=== PATIENT | male | born 1950 | race Hispanic/Latino ===

== ENCOUNTER 2021-06-16 18:01 | Observation (INO) | payer MEDICARE ==
--- OUTSIDE RECORDS SUMMARY | 2021-06-16 18:03 | XMS REPORT | Continuity of Care Document ---
:1950 Author Organization [facility] t Address [facility] [place] [address] Care Team Providers Name Role Phone JAYNE CACERES Attending Clinician Unavailable Payers Payer Name Policy Type Policy Number Effective Date Expiration Date S jose [facility] [id number] 2021 (MEDICARE 00:00:00 REPLACEMENT HMO) Problems This patient has no known problems. Allergies, Adverse Reactions, Alerts Allergy Allergy Status Severity Reaction(s) Onset Inactive Treating Comm ents Source Name Type Date Date Clinician No Known DA Active [facility] Medications This patient has no known medications. Procedures This patient has no known procedures. Encounters Start End Encounter Admission Attending Care Care Encounter Source Date/Time Date/Time Type Type Clinicians Facility Department ID 2021-06-03 2021-06-03 Outpatient [facility] [id number] 06:35:00 06:35:00 -[id number] [facility] 2021-03-04 2021-03-04 Outpatient YOVANA COXG [id number] [facility] 08:01:00 08:01:00 1109 [facility] Results Test Description Test Time Test Comments Results Result Sourc e Comments CHEST 2 VIEWS 2021-06-02 10:34:00 [facility] 1950 Sex: M [facility] [address] [address] Patient Name: LIAN WADE MR #: [id number] : 1950 Age/Sex: 70/M Req #: [id number] Adm Physician: Ordered by: JAYNE CACERES MD Report #: [id number] Location: OR Room/Bed: Procedure: [id number] DX/CHEST 2 VIEWS Exam Date: 06/02/21 Exam Time: 1014 REPORT STATUS: Signed Exam: CHEST 2 VIEWS Date: 06/02/2021 10:34 AM Indication: Preoperative Comparison: CXR 02/14/2019 FINDINGS: Lines/Tubes:None Lungs:The lungs are well inflated. No focal consolidation or pulmonary edema. Pleura:No pleural effusion. No pneumothorax. Heart/Mediastinum:The cardiomediastinal silhouette is normal in size and contour. Bones/Soft Tissues: No acute osseous injury. Abdomen: No free air below the diaphragm. IMPRESSION: No focal pneumonia or pulmonary edema. Signed by: Fatemeh Briggs on 06/02/2021 10:34 AM Dictated By: FATEMEH BRIGGS MD [id number] Transcribed By: SANTI on 06/02/21 1034 COPY TO: JAYNE CACERES MD CHEST 2 VIEWS 2019-02-14 13:57:[address] [address] Patient Name: LIAN WADE MR #: [id number] : 1950 Age/Sex: 68/M Req #: [id number] [facility] Physician: Ordered by: JAYNE CACERES MD Report #: [id number] Location: OR Room/Bed: Procedure: [id number] DX/CHEST 2 VIEWS Exam Date: Exam Time: REPORT STATUS: Signed EXAMINATION: CHEST 2 VIEWS INDICATION: Pre-operative COMPARISON: None FINDINGS: LINES/TUBES:None LUNGS:The lungs are well-inflated. No focal consolidation or pulmonary edema. PLEURA:No pleural effusion or pneumothorax. MEDIASTINUM:The cardiomediastinal silhouette appears normal in size and shape. Atherosclerotic calcifications of the thoracic aorta. BONES/SOFT TISSUES:No acute osseous injury. ABDOMEN:No free air under the diaphragm. Status post cholecystectomy. IMPRESSION: No focal pneumonia or pulmonary edema. Signed by: Fatemeh Briggs MD on 02/14/2019 1:58 PM Dictated By: FATEMEH BRIGGS MD [id number] Transcribed By: ANGELICA on 02/14/19 3718 COPY TO: JAYNE CACERES MD
[2021-06-16] MEDS ORDERED: MORPHINE 2 MG/ML SYR ONE ×2 (18:35→18:49)
[2021-06-16] MEDS ORDERED: ONDANSETRON 4 MG/2 ML VIAL ONE (18:35)
[2021-06-16 18:36] LABS: Absolute Lymphocytes (CBC) 2.5 K/uL (0.7-4.9); Hematocrit 36.8 % (39.6-49.0); MPV 7.7 fL (7.6-11.3); RBC Red Blood Cell Count 4.08 M/uL (4.33-5.43)
[2021-06-16 18:43] LABS: Protime INR 0.92
[2021-06-16] MEDS ORDERED: FAMOTIDINE 20 MG/2 ML VIAL IV ONE (18:49)
[2021-06-16 19:14] LABS: ALT/SGPT 43 U/L (12-78); AST/SGOT 29 U/L (15-37); Albumin 3.4 g/dL (3.4-5.0); Alkaline Phosphatase 60 U/L (45-117); BUN Blood Urea Nitrogen 14 mg/dL (7-18); Bicarbonate 20 mmol/L (21-32); Bilirubin Direct 0.1 mg/dL (0-0.2); Glucose Level 121 mg/dL (74-106); Lipase 177 U/L (73-393); NT PRO-BNP 87 pg/mL (<125); Potassium 3.7 mmol/L (3.5-5.1); Protein, Total 6.8 g/dL (6.4-8.2); Sodium Level 132 mmol/L (136-145)
--- NOTE | 2021-06-16 19:15 | RAD REPORT ---
EXAM DESCRIPTION: Reji Single View06/16/2021 6:58 pm CLINICAL HISTORY: Chest pain COMPARISON: 2016 FINDINGS: The lungs appear clear of acute infiltrate. The heart is normal size IMPRESSION: No acute abnormalities displayed
[2021-06-16 19:17] LABS: Bilirubin Total 0.5 mg/dL (0.2-1.0); Magnesium 1.5 mg/dL (1.8-2.4)
[2021-06-16] MEDS ORDERED: MORPHINE 4 MG/ML SYR ONE (19:17)
[2021-06-16] MEDS ORDERED: NA CHLORIDE 0.9% 500 ML ONE (19:22)
--- NOTE | 2021-06-16 20:04 | RAD REPORT ---
EXAM DESCRIPTION: CT - Angio Aorta For Dissection - 06/16/2021 7:36 pm CLINICAL HISTORY: . Chest and abd pain COMPARISON: 2007 TECHNIQUE: Computed tomography angiography of the chest, abdomen pelvis were obtained. 100 cc Isovue 370 was administered intravenously. Coronal and sagittal reconstruction were performed. MIP 3D reconstruction was performed All CT scans are performed using dose optimization technique as appropriate and may include automated exposure control or mA/KV adjustment according to patient size. FINDINGS: An aortic dissection is not seen. An aortic aneurysm is not displayed. The celiac, SMA and JULES are patent . A lung consolidation is not present. A pericardial effusion is not seen. A pleural effusion is not no pilar. The liver,spleen, pancreas, adrenals and kidneys demonstrate no significant abnormality. The appendix is normal. There no evidence diverticulitis. Cholecystectomy A 3.5 centimeter duodenal diverticulum. Small right inguinal hernia IMPRESSION: Negative for an aortic dissection.
--- NOTE | 2021-06-16 20:37 | EDPHYS ---
Physician Documentation [facility] Name: Isaias Gonzales Age: 70 yrs Sex: Male : 1950 Arrival Date: 06/16/2021 Time: 18:01 Bed 18 Private MD: ED Physician Aravind Burnham HPI: 06/16 18:15 This 70 yrs old Male presents to ER via Unassigned with complaints of Chest cp Pain. 18:15 The patient or guardian reports chest pain that is located primarily in the substernal cp area. 18:15 Onset: 1.5 hour(s) ago. cp 18:15 The pain radiates to back. Associated signs and symptoms: Pertinent positives: nausea, cp vomiting, Pertinent negatives: abdominal pain, cough, shortness of breath. 18:15 The chest pain is described as aching. cp 18:15 Duration: The patient or guardian reports a single episode, that is still ongoing, but cp improving. Historical: - Allergies: 18:21 NKDA; ph - PMHx: 18:21 Diabetes - NIDDM; Hypertension; Myocardial infarction; ph - Immunization history:: Adult Immunizations up to date, Client reports receiving the 2nd dose of the Covid vaccine, Pneumococcal vaccine is up to date, Flu vaccine is up to date. - Social history:: Smoking status: Patient denies any tobacco usage or history of. ROS: 18:18 Cardiovascular: Positive for chest pain, Negative for palpitations. cp 18:18 Eyes: Negative for injury, pain, redness, and discharge. cp 18:18 Constitutional: Negative for body aches, chills, fever. 18:18 ENT: Negative for drainage from ear(s), ear pain, sore throat, difficulty swallowing, difficulty handling secretions. 18:18 Respiratory: Negative for cough, shortness of breath, wheezing. 18:18 Abdomen/GI: Positive for nausea and vomiting, Negative for abdominal pain, diarrhea, constipation, hematemesis. 18:18 Back: Positive for pain at rest, pain with movement. 18:18 Neuro: Negative for altered mental status, headache, syncope, weakness. 18:18 All other systems are negative. Exam: 18:19 ECG was reviewed by the Attending Physician. cp 18:23 Constitutional: The patient appears in no acute distress, alert, awake, cp non-diaphoretic, non-toxic, well developed, well nourished. 18:23 Head/Face: Normocephalic, atraumatic. cp 18:23 Eyes: Periorbital structures: appear normal, Conjunctiva: normal, no exudate, no injection, Sclera: no appreciated abnormality, Lids and lashes: appear normal, bilaterally. 18:23 ENT: External ear(s): are unremarkable, Nose: is normal, Mouth: Lips: moist, Oral mucosa: moist, Posterior pharynx: Airway: no evidence of obstruction, patent. 18:23 Neck: ROM/movement: is normal, is supple, without pain, no range of motions limitations. 18:23 Chest/axilla: Inspection: normal, Palpation: is normal, no crepitus, no tenderness. 18:23 Cardiovascular: Rate: normal, Rhythm: regular, Edema: is not appreciated, JVD: is not appreciated. 18:23 Respiratory: the patient does not display signs of respiratory distress, Respirations: normal, no use of accessory muscles, no retractions, labored breathing, is not present, Breath sounds: are clear throughout, no decreased breath sounds, no stridor, no wheezing. 18:23 Abdomen/GI: Inspection: abdomen appears normal, Palpation: abdomen is soft and non-tender, in all quadrants. 18:23 Back: CVA tenderness, is absent. 18:23 Neuro: Orientation: to person, place \\T\\ time. Mentation: is normal, Motor: moves all fours, strength is normal. Vital Signs: 18:20 BP 137 / 87; Pulse 64; Resp 20; Temp 98.1; Pulse Ox 97% on R/A; ph 23:09 BP 131 / 75; Pulse 53; Resp 18; Pulse Ox 96% on R/A; sf1 MDM: 18:06 Patient medically screened. angelika 19:00 Differential diagnosis: abnormal EKG, acute myocardial infarction, pancreatitis, peptic cp ulcer disease, pleurisy, pneumonia, pneumothorax, stable angina, thoracic aortic disection, unstable angina. 20:35 Data reviewed: vital signs, nurses notes, lab test result(s), EKG, radiologic studies, cp CT scan, plain films. 20:35 Test interpretation: by ED physician or midlevel provider: ECG, plain radiologic cp studies. Physician consultation: Wayne Griggs MD was called at 20:30, was contacted at 20:30, regarding admission, to the telemetry unit. patient's condition. 06/16 18:13 Order name: Basic Metabolic Panel; Complete Time: 19:48 cp 06/16 19:48 Interpretation: Normal except: NA 132; CO2 20; GLUC 121. cp 06/16 18:13 Order name: CBC with Diff; Complete Time: 19:08 cp 06/16 19:08 Interpretation: Normal except: RBC 4.08; HGB 12.4; HCT 36.8; EOSINOPHIL % 8.1; EOSA 0.6.cp 06/16 18:13 Order name: LFT's; Complete Time: 19:48 cp 06/16 19:48 Interpretation: Normal except: A/G 1.0. cp 06/16 18:13 Order name: Magnesium; Complete Time: 19:48 cp 06/16 19:49 Interpretation: Abnormal: MG 1.5. cp 06/16 18:13 Order name: NT PRO-BNP; Complete Time: 19:48 cp 06/16 18:13 Order name: PT-INR; Complete Time: 19:08 cp 06/16 18:13 Order name: Troponin HS; Complete Time: 19:48 cp 06/16 18:13 Order name: XRAY Chest (1 view); Complete Time: 19:48 cp 06/16 18:13 Order name: COVID-19/FLU A+B (Document "Date of Onset" if Symptomatic) cp 06/16 18:13 Order name: Lipase; Complete Time: 19:48 cp 06/16 20:58 Order name: Basic Metabolic Panel EDMS 06/16 20:58 Order name: Basic Metabolic Panel EDMS 06/16 20:58 Order name: CBC with Automated Diff EDMS 06/16 20:58 Order name: CBC with Automated Diff EDMS 06/16 18:13 Order name: EKG; Complete Time: 18:14 cp 06/16 18:13 Order name: Cardiac monitoring; Complete Time: 18:19 cp 06/16 18:13 Order name: EKG - Nurse/Tech; Complete Time: 18:19 cp 06/16 18:13 Order name: IV Saline Lock; Complete Time: 18:19 cp 06/16 19:10 Order name: CT Aorta for Dissection; Complete Time: 20:23 cp 06/16 20:24 Interpretation: Report reviewed. cp 06/16 20:57 Order name: 60g Consistent Carbohydrate (ADA 1800/2000) EDDC 06/16 20:58 Order name: EKG Electrocardiogram EDDC 06/16 20:58 Order name: EKG Electrocardiogram EDDC 06/16 20:58 Order name: EKG Electrocardiogram EDDC 06/16 20:58 Order name: EKG Electrocardiogram EDDC 06/16 18:13 Order name: Labs collected and sent; Complete Time: 18:19 cp 06/16 18:13 Order name: O2 Per Protocol; Complete Time: 18:19 cp 06/16 18:13 Order name: O2 Sat Monitoring; Complete Time: 18:19 cp EC:19 Rate is 59 beats/min. Rhythm is regular. [place] interval is normal. QRS interval is normal. cp QT interval is normal. T waves are Inverted in lead aVR. Interpreted by me. Reviewed by me. Administered Medications: 18:40 Drug: Zofran (Ondansetron) 4 mg Route: IVP; Site: right antecubital; ll1 18:53 Follow up: Response: No adverse reaction ll1 18:40 Drug: morphine 2 mg Route: IVP; Site: right antecubital; ll1 18:52 Drug: Pepcid (famotidine) 20 mg Route: IVP; Site: right antecubital; ll1 18:52 Drug: morphine 2 mg Route: IVP; Site: right antecubital; ll1 18:53 Follow up: Response: No adverse reaction ll1 19:17 Drug: morphine 4 mg Route: IVP; Site: right antecubital; sf1 19:22 Drug: NS 0.9% 500 ml Route: IV; Rate: 100 ml/hr; Site: right antecubital; sf1 20:49 Drug: Magnesium Sulfate 2 grams Route: IVPB; Infused Over: 2 hrs; Site: right sf1 antecubital; Disposition Summary: 06/16/21 20:36 Hospitalization Ordered Hospitalization Status: Observation cp Provider: Wayne Griggs cp Location: Telemetry/MedSurg (observation) cp Condition: Stable cp Problem: new cp Symptoms: have improved cp Bed/Room Type: Standard Room Assignment: 208(06/16/21 21:46) cg Diagnosis - Chest pain, unspecified cp Forms: - Medication Reconciliation Form cp - SBAR form cp Signatures: Dispatcher [employer] Aravind Watson MD MD cha Hall, Patricia RN RN ph Aravind Foote PA PA cp Garcia, Cindy, RN RN cg Low Ritchie RN RN 1 Kristy Peter RN RN sf1 Corrections: (The following items were deleted from the chart) 21:46 20:36 cp cg
--- NOTE | 2021-06-16 20:37 | ER ---
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 Coronavirus screen: Vaccine status: Patient reports receiving the 2nd dose of the covid vaccine. Ebola Screen: No symptoms or risks identified at this time. Initial Sepsis Screen: Does the patient meet any 2 criteria? No. Patient's initial sepsis screen is negative. Does the patient have a suspected source of infection? No. Patient's initial sepsis screen is negative. Risk Assessment: Do you want to hurt yourself or someone else? Patient reports no desire to harm self or others. Onset of symptoms was June 16, 2021. 18:20 Method Of Arrival: Wheelchair ph 18:20 Acuity: TIARRA 3 ph Triage Assessment: 18:30 General: Appears uncomfortable, Behavior is cooperative, appropriate for age, anxious. ll1 Pain: Complains of pain in mid chest and back Quality of pain is described as aching, crampy, Aggravated by increased activity. Neuro: No deficits noted. Cardiovascular: Reports chest pain, nausea, vomiting, Heart tones S1 S2 Capillary refill < 3 seconds Clubbing of nail beds is absent JVD is absent Patient's skin is warm and dry. Rhythm is sinus bradycardia. Respiratory: Reports shortness of breath at rest Breath sounds are clear bilaterally. GI: Abdomen is round Bowel sounds present X 4 quads. Reports gaseousness, indigestion, nausea, vomiting. Derm: healing surgical wounds both hands. Musculoskeletal: Circulation, motion, and sensation intact. Capillary refill < 3 seconds. Historical: - Allergies: 18:21 NKDA; ph - PMHx: 18:21 Diabetes - NIDDM; Hypertension; Myocardial infarction; ph - Immunization history:: Adult Immunizations up to date, Client reports receiving the 2nd dose of the Covid vaccine, Pneumococcal vaccine is up to date, Flu vaccine is up to date. - Social history:: Smoking status: Patient denies any tobacco usage or history of. Screenin:23 Abuse screen: Denies threats or abuse. Nutritional screening: No deficits noted. ll1 Tuberculosis screening: No symptoms or risk factors identified. Fall Risk IV access (20 points). Total Borrego Fall Scale indicates No Risk (0-24 pts). Assessment: 19:00 Reassessment: No changes from previously documented assessment. Patient and/or family ll1 updated on plan of care and expected duration. Pain level reassessed. Patient is alert, oriented x 3, equal unlabored respirations, skin warm/dry/pink. 19:23 Pain: Pain radiates to back Pain began 2 hours ago. ll1 Vital Signs: 18:20 BP 137 / 87; Pulse 64; Resp 20; Temp 98.1; Pulse Ox 97% on R/A; ph 23:09 BP 131 / 75; Pulse 53; Resp 18; Pulse Ox 96% on R/A; sf1 ED Course: 18:01 Patient arrived in ED. kc5 18:04 Low Ritchie, RN is Primary Nurse. ll1 18:04 Aravind Foote PA is PHCP. cp 18:04 Aravind Burnham MD is Attending Physician. cp 18:04 Arm band placed on Patient placed in an exam room, on a stretcher. ll1 18:15 EKG completed in triage. Results shown to MD. ph 18:21 Triage completed. ph 18:21 Patient has correct armband on for positive identification. Bed in low position. Call 1 light in reach. Side rails up X 1. monitoring manager on. Pulse ox on. NIBP on. 18:25 Missed attempt(s): 22 gauge in right forearm. Bleeding controlled, band aid applied, ll1 catheter tip intact. Patient maintains SpO2 saturation greater than 95% on room air. 18:35 Inserted saline lock: 22 gauge in right antecubital area, using aseptic technique. ll1 Blood collected. 18:58 XRAY Chest (1 view) In Process Unspecified. EDMS 19:28 Primary Nurse role handed off by Low Ritchie, RN mw2 19:36 CT Aorta for Dissection In Process Unspecified. EDMS 20:14 Kristy Peter RN is Primary Nurse. sf1 20:36 Indu, Wayne, MD is Hospitalizing Provider. cp Administered Medications: 18:40 Drug: Zofran (Ondansetron) 4 mg Route: IVP; Site: right antecubital; ll1 18:53 Follow up: Response: No adverse reaction ll1 18:40 Drug: morphine 2 mg Route: IVP; Site: right antecubital; ll1 18:52 Drug: Pepcid (famotidine) 20 mg Route: IVP; Site: right antecubital; ll1 18:52 Drug: morphine 2 mg Route: IVP; Site: right antecubital; ll1 18:53 Follow up: Response: No adverse reaction ll1 19:17 Drug: morphine 4 mg Route: IVP; Site: right antecubital; sf1 19:22 Drug: NS 0.9% 500 ml Route: IV; Rate: 100 ml/hr; Site: right antecubital; sf1 20:49 Drug: Magnesium Sulfate 2 grams Route: IVPB; Infused Over: 2 hrs; Site: right sf1 antecubital; Outcome: 20:36 Decision to Hospitalize by Provider. cp 23:10 Admitted to Med/surg accompanied by tech, via wheelchair, Report called to caitlin madden sf1 23:10 Condition: good 06/17 00:10 Patient left the ED. sf1 Signatures: Dispatcher [employer] EDMS Nettie Crowder RN RN Aravind Nettles PA PA cp Amy Adam mw2 Low Ritchie RN RN ll1 Susan Dawn kc5 Kristy Peter RN RN sf1 Corrections: (The following items were deleted from the chart) 06/16 19:21 19:02 Inserted saline lock: 22 gauge in right antecubital area, using aseptic ll1 technique. Blood collected. ll1
[2021-06-16] MEDS ORDERED: Magnesium Sulfate 2gm IVPB 2 G/50 ML BAG IV ONE (20:42)
[2021-06-16 20:51] LABS: SARS-COV-2 RT PCR NEGATIVE (NEGATIVE)
[2021-06-16] MEDS ORDERED: ONDANSETRON 4 MG/2 ML VIAL IV PRN (20:54)
[2021-06-16] MEDS ORDERED: MORPHINE 4 MG/ML SYR IV PRN (20:54)
[2021-06-16] MEDS ORDERED: D50W 25 GM/50 ML SYRINGE IV PRN (20:56)
[2021-06-16] MEDS ORDERED: GLUCAGON 1 MG/VIAL IM PRN (20:56)
[2021-06-16] MEDS: INSULIN -REGULAR HUMAN 50 UNIT/0.5 ML ML SQ SCH (21:00)
[2021-06-17 05:45] LABS: Hematocrit 37.2 % (39.6-49.0); Lymphocytes % 32.7 % (15.3-44.8); MPV 7.8 fL (7.6-11.3); RBC Red Blood Cell Count 4.16 M/uL (4.33-5.43)
[2021-06-17 06:03] LABS: Potassium 4.4 mmol/L (3.5-5.1)
--- NOTE | 2021-06-17 07:23 | EKG ---
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
[2021-06-17] MEDS: INSULIN -REGULAR HUMAN 50 UNIT/0.5 ML ML SQ SCH ×2 (07:30→11:30)
[2021-06-17] MEDS ORDERED: ASPIRIN EC 81 MG TAB PO SCH (09:00)
[2021-06-17 09:07] VITALS: O2SAT 95
[2021-06-17 13:38] VITALS: BP 117/67; TEMP 98.1
--- NOTE | 2021-06-19 09:34 | CON ---
Date of Consultation: 06/17/2021 Reason For Consultation: Chest pain. History Of Present Illness: Mr. Gonzales is a 70-year-old, who now sees Dr. Jacek Hope for his [facility] care. Apparently, he ate some venison recently and since then has had diarrhea, vomiting, midepi gastric pain radiating to the back without any PND, orthopnea, pedal edema, palpitation, or syncope. Denied any fever or chills. By the time he came to the emergency room, he had a normal EKG, normal x-ray, normal troponin. Past Medical History: Includes diabetes, coronary artery disease, and hypertension. Allergies: NONE. Review of Systems: Negative. Social History: Negative. Family History: Negative. Medications: At home include aspirin, Lipitor, and metoprolol. Physical Examination: Vital Signs: Stable. He was afebrile. HEENT: Negative. Neck: Supple with no bruit. Chest: Clear to auscultation and percussion. Cardiac: Revealed a regular rhythm and rate. No murmurs, gallops, or rubs. Abdomen: Benign. Extremities: Revealed no clubbing, cyanosis, or edema. Diagnostic Data: Available and were stated earlier. Impression And Plan: Atypical chest pain, midepigastric, radiating to the back with nausea, vomiting , diarrhea. I think we are dealing with final gastroenteritis and he may have had some food poisonin g from eating venison. He has a normal EKG, normal x-ray, normal troponin. I am comfortable with [facility] going home and follow up with Dr. Hope in the very near future. He has had a negative workup at [facility] office about 8 months ago including an echo and a stress test. His coronary artery disease, dyslip idemia, and hypertension are stable. NB/MODL Voice ID: [id number] Report ID: [id number]
--- NOTE | 2021-06-19 23:20 | SS ---
Date of Discharge: 06/17/2021 The patient was admitted to the hospital on 06/17, presented to the emergency room complaining of mable den onset of severe midepigastric and back pain. He states it was somewhat similar to the pain he back d when he had an acute PA a number of years ago. However, on further questioning, patient states michelle t he has been eating a significant amount of venison for a few days prior to this episode, which he i s accustomed to doing. It resulted in some diarrhea, and when he was seen in the emergency room, he threw up with some relief of the pain. A cardiac workup was negative, seen by Cardiology, was felt t hat it was any GI problem, and I think the most likely etiological factor was the deer, and he had so me tenderness in the mid epigastric area, which also resolved. His vital signs remained stable throu ghout his hospital stay, and he felt back to baseline by the next day. The other thing the patient d id have on his blood work was sodium, which was addressed with IV fluids. His blood sugar was normal . Pulse was 47. A CT angio for an aortic dissection was also done, and this too was negative. He w as therefore discharged on usual medications with the addition of Protonix to the regimen to follow u p with me in 1 week. Final Diagnosis: Acute pylorospasm. HR/MODL Voice ID: [id number] Report ID: [id number]
== END 2021-06-17 14:56 | disposition home or self-care (01) ==
LOC: ER 18:01 → ERHOLD 21:06 → 2ND 23:47
PROVIDERS: ADMIT Family Medicine; ATTEND Family Medicine
DX: R07.89 Other chest pain (principal); R11.2 Nausea with vomiting, unspecified; R19.7 Diarrhea, unspecified; E11.9 Type 2 diabetes mellitus without complications; I10 Essential (primary) hypertension; I25.10 Atherosclerotic heart disease of native coronary artery without angina pectoris; I25.2 Old myocardial infarction; Z20.822 Contact with and (suspected) exposure to COVID-19
CPT/HCPCS: 93005; 85025 ×2; 80048 ×2; 36415; 83735; 85610; 82947 ×2; 80076; 84484; 83690; 83880; 0240U; 71275; 74175; 71045; 96375; 96374; 99285; Q9967; J2270 ×2; J3475; J7040; J2405; G0378 ×2

== ENCOUNTER 2025-02-23 08:34 | Day surgery (SDC) | payer MEDICARE ==
--- NOTE | 2025-02-19 10:27 | RAD REPORT ---
Procedure: Chest Pa And Lat (2 Views) HISTORY: Preop COMPARISON: 2021 FINDINGS: The lungs appear clear of acute infiltrate. No significant pleural effusion noted. The heart is normal size. IMPRESSION: No acute abnormality is displayed.
[2025-02-19 10:41] LABS: Absolute Lymphocytes (CBC) 1.4 K/uL (0.7-4.9); Hematocrit 45.2 % (39.6-49.0); Hemoglobin 15.1 g/dL (13.6-17.9); MCH 30.2 pg (27.0-35.0); MCHC 33.4 g/dL (32.0-36.0); MCV 90.4 fL (80-100); MPV 8.0 fL (7.6-11.3); Nucleated RBC Absolute Count 0.0 (0-0); Nucleated Red Blood Cells % 0.1 % (0-0); RBC Red Blood Cell Count 5.00 M/uL (4.33-5.43); White Blood Count 6.70 thou/uL (4.3-10.9)
[2025-02-19 10:52] LABS: PT Prothrombin Time 12.6 SECONDS (10-13.0); PTT, Activated Partial Thromb 29.0 SECONDS (27.2-37.4); Protime INR 1.12
[2025-02-19 10:56] LABS: Anion Gap 9.0 mEq/L (5.0-15.0); BUN Blood Urea Nitrogen 16.0 mg/dL (7-18); Glucose Level 136.0 mg/dL (74-106); Potassium 4.0 mEq/L (3.5-5.1)
[2025-02-23] MEDS ORDERED: ONDANSETRON 4 MG/2 ML VIAL ONE (09:09)
[2025-02-23] MEDS ORDERED: LIDOCAINE 2% MPF 5 ML VIAL ONE (09:09)
[2025-02-23] MEDS ORDERED: FENTANYL CITR 100 MCG/2 ML ONE (09:09)
[2025-02-23] MEDS: NA CHLORIDE 0.9% 1,000 ML ONE (09:10)
[2025-02-23] MEDS: CEFAZOLIN SODIUM 2 GM/VIAL ONE (10:14)
[2025-02-23] MEDS ORDERED: EPHEDRINE SULF 50 MG/ML VIAL ONE (10:15)
[2025-02-23] MEDS: BUPIVACAINE 0.25% PF 10 ML VIAL ONE (10:55)
--- NOTE | 2025-02-23 11:09 | P.BOP ---
Preoperative diagnosis: Right knee medial meniscus tear, right knee osteoarthritis Postoperative diagnosis: Same Primary procedure: Right knee arthroscopic partial medial meniscectomy Solution Coordinator: NONE,NONE Estimated blood loss: 3 cc Specimen: None Findings: See dictation Anesthesia: General Complications: None Implants: None Fluids & blood products: Per anesthesia record Transferred to: Recovery Room Condition: Good
--- NOTE | 2025-02-23 11:13 | P.OP ---
Preoperative diagnosis: Right knee medial meniscus tear, right knee osteoarthritis Postoperative diagnosis: Same Primary procedure: Right knee arthroscopic partial medial meniscectomy Anesthesia: General Estimated blood loss: 3 cc Specimen: None Findings: See dictation Operative Technique: Indication For Procedure: Isaias is a 74-year-old male who presented to my clinic with signs, symptoms, and MRI findings consistent with a right knee medial meniscus tear and underlying right knee osteoarthritis. Given her pain and mechanical symptoms we elected to proceed with right knee arthroscopic partial medial meniscectomy. I discussed with the patient risks and benefits associated with operative and nonoperative treatment and he expressed understanding and elected to proceed with operative treatment. Description Of Procedure: After informed consent was obtained, the patient was identified in the preoperative holding area. The right lower extremity was marked. Patient was brought to the operating room transferred to the operative table in the supine fashion and placed under general anesthesia. The right lower extremity was then prepped and draped in usual sterile fashion. A time- out was initiated. The correct patient and procedure were performed and identified. The patient did receive preoperative prophylactic antibiotics. The right lower extremity was exsanguinated using an Esmarch and the tourniquet was inflated to 300 mmHg. Standard anterior medial and anterior lateral portals were created. The arthroscope was brought in via the anterolateral portal and a diagnostic arthroscopy was performed. The arthroscope was first part of the patellofemoral joint which was noted to have mild chondromalacia changes of the trochlear groove or undersurface of the patella. The arthroscope was then brought on the both medial and lateral gutters and there were no loose bodies found within the gutters. The arthroscope was first brought into the medial compartment where the patient was noted to have a complex tear of the posterior horn and body of the medial meniscus. Using a meniscal biter and arthroscopic shaver, a partial medial meniscectomy was performed to smooth meniscal borders and the medial meniscus was stable to probe. 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 The arthroscope was then brought into the intercondylar notch where the patient was noted to have an intact ACL and PCL which were stable to probe. The arthroscope was then brought into no significant tear of the lateral meniscus. The meniscus was stable to probe. There were no significant chondromalacia changes of the lateral femoral condyle or lateral tibial plateau. Arthroscopic instruments were then removed without complication. Wounds were then irrigated thoroughly with normal saline. Portals were approximated using a 3-0 Monocryl. Sterile dressings were applied. The patient was awakened and transferred to PACU in stable condition. Postoperative Plan: The patient will be weightbearing as tolerated on the right lower extremity. He will follow-up in clinic 1 week for wound check and dressing change. We will follow the post meniscectomy protocol 2 weeks postoperatively. Complications: None Implants: None Fluids & blood products: Per anesthesia record Transferred to: Recovery Room Condition: Good
[2025-02-23 12:29] VITALS: BP 159/61; TEMP 97.6; O2SAT 98
== END 2025-02-23 12:25 | disposition home or self-care (01) ==
LOC: OR 08:34
PROVIDERS: ATTEND Orthopaedic Surgery Sports Medicine
PROC: 0SBC4ZZ Excision of Right Knee Joint, Percutaneous Endoscopic Approach (ICD-10-PCS; principal; 2025-02-23 10:15)
DX: S83.241A Other tear of medial meniscus, current injury, right knee, initial encounter (principal); M17.11 Unilateral primary osteoarthritis, right knee
CPT/HCPCS: 36415; 71046; 80048; 82947; 85025; 85610; 85730; 93005; J1100; J2003; J2405; J2704; J3010; J7030